=== PATIENT | female | born 1945 | race Hispanic/Latino ===

== ENCOUNTER 2019-11-02 12:52 | Emergency (ER) | payer MEDICARE ==
[2019-11-02 12:59] VITALS: BP 155/76
--- NOTE | 2019-11-02 13:04 | Emergency Department Report ---
Blank Doc - Documentation Documentation: 74-year-old female that presents with facial abrasions, headache, bilateral knee pain and right hand pain s/p trip and fall today. Denies any neck or back pains. This initial assessment/diagnostic orders/clinical plan/treatment(s) is/are subject to change based on patient's health status, clinical progression and re- assessment by fellow clinical providers in the ED. Further treatment and workup at subsequent clinical providers discretion. Patient/guardians urged not to elope from the ED as their condition may be serious if not clinically assessed and managed. Initial orders include: 1- Patient sent to [facility] for further evaluation and treatment 2- CT/Xrays
--- NOTE | 2019-11-02 14:16 | XRay Report ---
BILATERAL KNEES 3 VIEWS INDICATION: pain s/p fall. COMPARISON: None. IMPRESSION: Total left knee arthroplasty changes are identified which appear intact. Medial compart ment hemiarthroplasty is identified in the right knee which appears intact. No evidence for fracture or bone lesion. No obvious loosening. There are moderate degenerative changes in the lateral compartm ent of the right knee. Moderate right knee effusion is also identified. No acute injury is appreciate d. Signer Name: Cash Vizcaino Jr, MD Signed: 11/02/2019 2:11 PM Workstation Name: [id number]
--- NOTE | 2019-11-02 14:25 | Cat Scan Report ---
CT HEAD WITHOUT CONTRAST INDICATION / CLINICAL INFORMATION: fall with abrasions. Head injury. TECHNIQUE: Axial imaging performed from the skull apex through the skull base without the use of cont rast. Sagittal and coronal reformatted images. All CT scans at this location are performed using CT dose reduction for ALARA by means of automated exposure control. COMPARISON: None available. FINDINGS: CEREBRAL PARENCHYMA: No significant abnormality. No acute territorial infarct. HEMORRHAGE: None. EXTRA-AXIAL SPACES: Normal in size and morphology for the patient's age. VENTRICULAR SYSTEM: Normal in size and morphology for the patient's age. MIDLINE SHIFT OR HERNIATION: None. CEREBELLUM / BRAINSTEM: No significant abnormality. CALVARIUM: No significant abnormality. ORBITS: Normal as visualized. PARANASAL SINUSES / MASTOID AIR CELLS: Normal as visualized. SOFT TISSUES of HEAD: No significant abnormality. ADDITIONAL FINDINGS: None. IMPRESSION: No acute intracranial abnormality. Signer Name: Cash Vizcaino Jr, MD Signed: 11/02/2019 2:20 PM Workstation Name: [id number]
--- NOTE | 2019-11-02 14:34 | Cat Scan Report ---
CT MAXILLOFACIAL WITHOUT CONTRAST INDICATION: fall with abrasions. TECHNIQUE: CT facial bones without contrast. All CT scans at this location are performed using CT dose reduction for ALARA by means of automated exposure control. COMPARISON: None available. FINDINGS: FACIAL BONES: There is a nondisplaced age-indeterminate left nasal fracture. There is no other maxill ofacial fracture. PARANASAL SINUSES: There are mucous retention cysts in the right maxillary sinus without acute abnorm ality. ORBITS: No acute soft tissue injury in the orbits. Previous right lens replacement. VISUALIZED INTRACRANIAL STRUCTURES: No significant abnormality. ADDITIONAL FINDINGS: None. IMPRESSION: 1. Nondisplaced age-indeterminate left nasal fracture. 2. No additional maxillofacial fracture or other acute abnormality. Signer Name: Nehemias Hannon MD Signed: 11/02/2019 2:30 PM Workstation Name: [id number]
--- NOTE | 2019-11-02 14:37 | XRay Report ---
LEFT HAND 3 VIEWS LEFT LONG FINGER 3 VIEWS INDICATION: pain s/p fall. COMPARISON: No relevant prior imaging study available. FINDINGS: There is a punctate ossific/calcific density along the dorsal aspect of the DIP joint which could be a small avulsion fracture, correlate with point tenderness. Osteoarthrosis changes are noted. There is no dislocation. No foreign bodies. IMPRESSION: 1. Questionable small dorsal avulsion type fracture at the DIP joint, correlate with point tenderness . Signer Name: Alphonse Blevins MD Signed: 11/02/2019 2:32 PM Workstation Name: [id number]
--- NOTE | 2019-11-02 15:41 | Emergency Department Report ---
ED Fall HPI - General Chief Complaint: Fall Stated Complaint: FALL, HEAD INJURY Time Seen by Provider: 11/02/19 13:02 Source: patient Mode of arrival: Wheelchair - History of Present Illness Initial Comments: 74-year-old female, history of arthritis, knee replacements, presents to ED status post trip and fall. Patient sustained injury to her face, hands, and knee. Patient denies LOC. Patient reports tetanus is up-to-date. MD Complaint: fall -: hour(s) (3) Fall From: standing Fall Witnessed: yes, by family Place Fall Occurred: other (Outdoors) Loss of Consciousness: none Prolonged Down Time?: no Symptoms Prior to Fall: none Location: face Location - Extremities: Left: Hand, Knee, Right: Knee Severity: mild Quality: aching Context: tripped/slipped Associated Symptoms: denies: headache, neck pain, numbness, weakness, chest paint, shortness of breath, abdominal pain - Related Data Allergies Allergy/AdvReac Type Severity Reaction Status Date / Time amoxicillin Allergy Unknown Verified 11/02/19 13:05 bee venom protein (honey bee) Allergy Unknown Verified 11/02/19 13:05 NSAIDS (Non-Steroidal Allergy Unknown Verified 11/02/19 13:05 Anti-Inflamma ED Review of Systems ROS: Stated complaint: FALL, HEAD INJURY Other details as noted in HPI ED Past Medical Hx - Past Medical History Additional medical history: Breast CA-current,ruptured disc. chronic back pain - Surgical History Past Surgical History?: Yes Additional Surgical History: Lap band/port. bilatteral knee replacement - Social History Smoking Status: Never Smoker Substance Use Type: None ED Physical Exam - General Limitations: No Limitations General appearance: alert, in no apparent distress - Head Head exam: Present: other (Abrasion to forehead) - Eye Eye exam: Present: normal appearance, PERRL, EOMI - ENT ENT exam: Present: mucous membranes moist, other (Abrasion to the nose, slight swelling, slight tenderness, no deformity noted) - Neck Neck exam: Present: normal inspection, full ROM. Absent: tenderness (No midline cervical vertebral tenderness) - Respiratory Respiratory exam: Present: normal lung sounds bilaterally. Absent: respiratory distress - Cardiovascular Cardiovascular Exam: Present: regular rate, normal rhythm - GI/Abdominal GI/Abdominal exam: Present: soft. Absent: distended, tenderness - Extremities Exam Extremities exam: Present: full ROM, other (Abrasion to left knee). Absent: joint swelling - Back Exam Back exam: Present: normal inspection. Absent: vertebral tenderness - Neurological Exam Neurological exam: Present: alert, oriented X3, CN II-XII intact. Absent: motor sensory deficit - Psychiatric Psychiatric exam: Present: normal affect, normal mood - Skin Skin exam: Present: warm, dry, abrasion ED Course Vital Signs 11/02/19 11/02/19 12:57 13:02 Temperature 98.3 F 98.3 F Pulse Rate 65 63 Respiratory 18 18 Rate Blood Pressure 155/76 155/76 O2 Sat by Pulse 97 100 Oximetry ED Medical Decision Making - Radiology Data Radiology results: report reviewed, image reviewed - Medical Decision Making 74-year-old female status post trip and fall earlier today. No LOC. Patient has abrasions to forehead, nose, left finger, left knee. Patient reports her tetanus is up-to-date. Patient feeling okay at this time, refusing any pain medication. CT head negative for any intracranial injury. CT face shows nasal bone fracture, age-indeterminate. Left knee films are negative for any f indings. Left finger films show avulsion fracture at the DIP. Finger splint placed. Wounds cleaned and bacitracin applied to abrasions. Patient states she has ibuprofen at home. Does not want any additional prescriptions for pain. Patient also follow-up with her primary care physician. Return precautions given. - Differential Diagnosis Intracranial injury, fracture, contusion Critical care attestation.: If time is entered above; I have spent that time in minutes in the direct care of this critically ill patient, excluding procedure time. ED Disposition Clinical Impression: Acute head injury, Nasal bone fracture, Contusion of left knee, Avulsion fracture of distal phalanx of finger Disposition: DC-01 TO HOME OR SELFCARE Is pt being admited?: No Condition: Stable Instructions: Nasal Fracture (ED), Finger Fracture (ED), Minor Head Injury (ED), Contusion in Adults (ED) Referrals: YO DKUES MD [Other] - 3-5 Days PRIMARY CARE, [Referring] - 3-5 Days Time of Disposition: 15:45
== END 2019-11-02 16:19 | disposition home or self-care (01) ==
LOC: ED 12:52
DX: S02.2XXA Fracture of nasal bones, initial encounter for closed fracture (principal); S62.668A Nondisplaced fracture of distal phalanx of other finger, initial encounter for closed fracture; S80.02XA Contusion of left knee, initial encounter; Z98.890 Other specified postprocedural states; Z88.1 Allergy status to other antibiotic agents; Z91.030 Bee allergy status; X58.XXXA Exposure to other specified factors, initial encounter; Y93.89 Activity, other specified; Y92.89 Other specified places as the place of occurrence of the external cause; Y99.8 Other external cause status
CPT/HCPCS: 70450; 70486